=== PATIENT | male | born 1975 | race American Indian/Alaskan Native ===

== ENCOUNTER 2020-11-24 08:29 | Emergency (ER) | payer BC ==
[2020-11-24 08:48] VITALS: BP 121/83
[2020-11-24] MEDS ORDERED: TETRACAINE 0.5% OPHTH SOLN 4ML OU ONE (09:30)
--- NOTE | 2020-11-24 09:38 | Emergency Department Report ---
ED Eye Problem HPI - General Chief complaint: Eye Problems Stated complaint: RT EYE RED X 3 DAYS Time Seen by Provider: 11/24/20 09:30 Source: patient Mode of arrival: Ambulatory Limitations: No Limitations - History of Present Illness Initial comments: Patient is a 45-year-old F Pakistani male with no significant past medical history who is complaining of right eye redness. States approximately 3 days ago started having some irritation in the right eye. States it feels as though something may be under his eyelid. Said quite a bit of tearing and swelling to the conjunctivo-. Denies any trauma contact use. Complains of only very mild blurriness in the right eye - Related Data Previous Rx's Medication Instructions Recorded Last Taken Type Gentamicin 0.3% Ophth Soln 2 drops OP Q4H #1 bottle 11/24/20 Unknown Rx Naphazoline HCl/Pheniramine 2 drops OP BID #10 ml 11/24/20 Unknown Rx [Naphcon-A Eye Drops] Allergies Allergy/AdvReac Type Severity Reaction Status Date / Time No Known Allergies Allergy Verified 11/24/20 08:48 ED Review of Systems ROS: Stated complaint: RT EYE RED X 3 DAYS Other details as noted in HPI Comment: All other systems reviewed and negative ED Past Medical Hx - Past Medical History Previous Medical History?: No - Surgical History Past Surgical History?: No - Medications Home Medications: Home Medications Medication Instructions Recorded Confirmed Last Taken Type Gentamicin 0.3% Ophth Soln 2 drops OP Q4H #1 bottle 11/24/20 Unknown Rx Naphazoline HCl/Pheniramine 2 drops OP BID #10 ml 11/24/20 Unknown Rx [Naphcon-A Eye Drops] ED Physical Exam - General Limitations: No Limitations General appearance: alert, in no apparent distress - Head Head exam: Present: atraumatic, normocephalic - Expanded Eye Exam Expanded Sclera/Conjunctival: Normal Inspection: Left, Injection: Right (scleral edema) - ENT ENT exam: Present: mucous membranes moist - Neck Neck exam: Present: normal inspection - Respiratory Respiratory exam: Present: normal lung sounds bilaterally. Absent: respiratory distress, wheezes, rales, rhonchi - Cardiovascular Cardiovascular Exam: Present: regular rate, normal rhythm, normal heart sounds. Absent: systolic murmur, diastolic murmur, rubs, gallop - GI/Abdominal GI/Abdominal exam: Present: soft, normal bowel sounds. Absent: distended, tenderness, guarding, rebound - Rectal Rectal exam: Present: deferred - Extremities Exam Extremities exam: Present: normal inspection - Back Exam Back exam: Present: normal inspection - Neurological Exam Neurological exam: Present: alert, oriented X3 - Psychiatric Psychiatric exam: Present: normal affect, normal mood - Skin Skin exam: Present: warm, dry, intact, normal color. Absent: rash ED Course Vital Signs 11/24/20 08:46 Temperature 98.8 F Pulse Rate 84 Respiratory 16 Rate Blood Pressure 121/83 [Left] O2 Sat by Pulse 100 Oximetry ED Medical Decision Making - Medical Decision Making Patient to be started on Naphcon gentamicin and discharged home. I was irrigated with normal saline. No obvious foreign body seen. Critical care attestation.: If time is entered above; I have spent that time in minutes in the direct care of this critically ill patient, excluding procedure time. ED Disposition Clinical Impression: Acute conjunctivitis of right eye Disposition: HOME / SELF CARE / HOMELESS Is pt being admited?: No Does the pt Need Aspirin: No Condition: Stable Instructions: How to Use Eye Drops and Eye Ointments, Bacterial Conjunctivitis, Adult, [id number] Prescriptions: Gentamicin 0.3% Ophth Soln 2 drops OP Q4H #1 bottle Naphazoline HCl/Pheniramine [Naphcon-A Eye Drops] 2 drops OP BID #10 ml Time of Disposition: 09:43
== END 2020-11-24 10:20 | disposition home or self-care (01) ==
LOC: ED 08:29
DX: H10.31 Unspecified acute conjunctivitis, right eye (principal)
CPT/HCPCS: 99282